=== PATIENT | female | born 1990 | race Caucasian/White ===

== ENCOUNTER 2017-05-20 19:21 | Emergency (ER) | payer BC ==
[2017-05-20 19:54] VITALS: BP 133/88
--- NOTE | 2017-05-20 20:36 | ER Document Report ---
ED Medical Screen (RME) - General TRAVEL OUTSIDE OF THE [place] IN LAST 30 DAYS: No <IVETTE VILLATORO - Last Filed: 05/20/17 20:35> <ELKIN SCHROEDER - Last Filed: 05/20/17 23:37> - General Chief Complaint: Laceration Stated Complaint: FINGER LACERATION Time Seen by Provider: 05/20/17 20:35 Notes: Patient cut her right little finger on a broken glass this evening. She has an L-shaped 2 cm laceration over the proximal lateral aspect of the right fifth finger. It is in the region of the digital nerve on both the top and the bottom laterally. She describes numbness down the entire lateral aspect of the finger. She has flexion and extension at the PIP joint. (IVETTE VILLATORO) - Related Data Allergies/Adverse Reactions: No Known Allergies Allergy (Verified 05/20/17 19:51) Home Medications: Current Home Medications Norethindrone-Ethinyl Estrad [Alyacen 1-35-28 Tablet] 1 tab PO DAILY 05/20/17 [ History] Venlafaxine HCl ER [Effexor Xr 75 mg Cap.sr] 75 mg PO DAILY 05/20/17 [History] Past Medical History - Social History Chew tobacco use (# tins/day): No Frequency of alcohol use: Occasional Drug Abuse: None Renal/ Medical History: Denies: Hx Peritoneal Dialysis GI Medical History: Reports: Hx Gastroesophageal Reflux Disease Psychiatric Medical History: Reports: Hx Depression - anxiety Past Surgical History: Reports: Hx Section, Hx Tonsillectomy - Immunizations Hx Diphtheria, Pertussis, Tetanus Vaccination: Yes History of Influenza Vaccine for 05/2017 - 10/2017 Season: No <IVETTE VILLATORO - Last Filed: 05/20/17 20:35> - Vital signs Vitals: Temp Pulse Resp BP Pulse Ox 98.7 F 80 18 133/88 H 99 05/20/17 19:52 05/20/17 19:52 05/20/17 19:52 05/20/17 19:52 05/20/17 19:52 - Vital Signs Vital signs: Temp Pulse Resp BP Pulse Ox 98.7 F 80 18 133/88 H 99 05/20/17 19:52 05/20/17 19:52 05/20/17 19:52 05/20/17 19:52 05/20/17 19:52 Procedures - Laceration/Wound Repair Right Hand 5th digit Time completed: 23:24 Wound length (cm): 2.5 Wound's Depth, Shape: Superficial, Flap Laceration pre-procedure: Sterile PPE donned, Betadine prep applied, Sterile drapes applied Anesthetic type: 2% Lidocaine Volume Anesthetic (mLs): 1 Wound explored: Clean Irrigated w/ Saline (mLs): 40 Wound Debrided: Minimal Wound Repaired With: Sutures Suture Size/Type: 5:0, Prolene Number of Sutures: 6 Layer Closure?: No Post-procedure wound care: Sterile dressing applied Post-procedure NV exam normal: No - HYPESTHESIA ULNAR SIDE OF DIGIT DISTAL TO INJURY Complications: No Hands front picture: 1 - LACERATION, SUTURED <ELKIN SCHROEDER - Last Filed: 05/20/17 23:37> Doctor's Discharge <IVETTE VILLATORO - Last Filed: 05/20/17 20:35> <ELKIN SCHROEDER - Last Filed: 05/20/17 23:37> - Discharge Clinical Impression: Laceration of finger Qualifiers: Encounter type: initial encounter Finger: little finger Damage to nail status: without damage Foreign body presence: without foreign body Laterality: right Qualified Code(s): S61.216A - Laceration without foreign body of right little finger without damage to nail, initial encounter Condition: Stable Disposition: HOME, SELF-CARE Instructions: Laceration Care ([facility]), Oral Narcotic Medication ([facility]), Soap Cleansing ([facility]), Elevate the Injury ([facility]) Additional Instructions: KEEP HAND ELEVATED MUCH POSSIBLE NEXT 24-48 HOURS. KEEP WOUND CLEAN, KEEP IT DRY FOR NEXT 24 HOURS. YOU MAY TAKE NORCO FOR PAIN IF NEEDED. FOLLOW UP FOR SUTURE REMOVAL IN 10 DAYS, RETURN SOONER IF PROBLEMS.
[2017-05-20] MEDS ORDERED: LIDOCAINE 2% INJ (20 MG/ML) 20 ML MDV INJ ONE (20:43)
[2017-05-20] MEDS ORDERED: HYDROCODONE/ACETAMINOPHEN 5-325 MG 6 TAB/DSPK PO PRN (23:37)
--- NOTE | 2017-05-20 23:47 | ER Document Report ---
ED Wound - General Chief Complaint: Laceration Stated Complaint: FINGER LACERATION Time Seen by Provider: 05/20/17 20:35 Mode of Arrival: Ambulatory Information source: Patient TRAVEL OUTSIDE OF THE [place] IN LAST 30 DAYS: No - HPI Patient complains to provider of: Laceration Occurred: Just prior to arrival Onset/Duration: Sudden Quality of pain: Sharp Severity: Mild Context: Injury - WASHING DISHES, DRINKING GLASS BROKE & CUT FINGER Skin Temperature: Warm Skin Color: Normal Capillary refill: < 3 seconds Sensations intact: No - HYPESTHESIA ULNAR SIDE OF 5th FINGER DISTAL TO WOUND Distal pulses present: Yes Associated Symptoms: None - Related Data Allergies/Adverse Reactions: No Known Allergies Allergy (Verified 05/20/17 19:51) Home Medications: Current Home Medications Norethindrone-Ethinyl Estrad [Alyacen 1-35-28 Tablet] 1 tab PO DAILY 05/20/17 [ History] Venlafaxine HCl ER [Effexor Xr 75 mg Cap.sr] 75 mg PO DAILY 05/20/17 [History] Past Medical History - General Information source: Patient - Social History Smoking Status: Current Every Day Smoker Chew tobacco use (# tins/day): No Frequency of alcohol use: Occasional Drug Abuse: None Family History: Reviewed & Not Pertinent Patient has suicidal ideation: No Patient has homicidal ideation: No - Past Medical History Cardiac Medical History: Reports: None Pulmonary Medical History: Reports: None EENT Medical History: Reports: None Neurological Medical History: Reports: None Endocrine Medical History: Reports: None Renal/ Medical History: Reports: None. Denies: Hx Peritoneal Dialysis Malignancy Medical History: Reports: None GI Medical History: Reports: Hx Gastroesophageal Reflux Disease Musculoskeltal Medical History: Reports None Psychiatric Medical History: Reports: Hx Depression - anxiety Past Surgical History: Reports: Hx Section, Hx Tonsillectomy - Immunizations Hx Diphtheria, Pertussis, Tetanus Vaccination: Yes Review of Systems - Review of Systems Constitutional: No symptoms reported EENT: No symptoms reported Cardiovascular: No symptoms reported Respiratory: No symptoms reported Gastrointestinal: No symptoms reported Genitourinary: No symptoms reported Female Genitourinary: No symptoms reported Musculoskeletal: No symptoms reported Skin: See HPI Neurological/Psychological: See HPI Physical Exam - Vital signs Vitals: Temp Pulse Resp BP Pulse Ox 98.7 F 80 18 133/88 H 99 05/20/17 19:52 05/20/17 19:52 05/20/17 19:52 05/20/17 19:52 05/20/17 19:52 Interpretation: Normal - General General appearance: Appears well, Alert In distress: None - HEENT Head: Normocephalic Eyes: Normal Conjunctiva: Normal Ears: Normal Nasal: Normal Mouth/Lips: Normal Mucous membranes: Normal - Respiratory Respiratory status: No respiratory distress - Cardiovascular Rhythm: Regular - Abdominal Inspection: Normal Distension: No distension - Extremities General upper extremity: Normal inspection General lower extremity: No: Normal inspection - R. HAND (SEE BELOW) Hand: Laceration - 5th DIGIT (SEE GRAPHIC) - Neurological Neuro grossly intact: No - DECREASED SENSATION DISTAL TO LACERATION - Psychological Associated symptoms: Normal affect, Normal mood - Skin Skin Temperature: Warm Skin Moisture: Dry Skin Color: Normal Skin Turgor: Elastic Skin irregularity: Laceration - SEE GRAPHIC Course - Vital Signs Vital signs: Temp Pulse Resp BP Pulse Ox 98.3 F 82 18 133/88 H 99 05/20/17 23:53 05/20/17 23:53 05/20/17 23:53 05/20/17 19:52 05/20/17 23:53 Procedures - Laceration/Wound Repair Right Hand 5th digit Time completed: 23:24 Wound length (cm): 2.5 Wound's Depth, Shape: Superficial, Flap Laceration pre-procedure: Sterile PPE donned, Betadine prep applied, Sterile drapes applied Anesthetic type: 2% Lidocaine Volume Anesthetic (mLs): 1 Wound explored: Clean, No foreign body removed Irrigated w/ Saline (mLs): 40 Wound Debrided: Minimal Wound Repaired With: Sutures Suture Size/Type: 5:0, Prolene Number of Sutures: 6 Layer Closure?: No Post-procedure wound care: Sterile dressing applied Post-procedure NV exam normal: No - HYPESTHESIA ULNAR SIDE OF DIGIT DISTAL TO WOUND Complications: No Discharge - Discharge Clinical Impression: Laceration of finger Qualifiers: Encounter type: initial encounter Finger: little finger Damage to nail status: without damage Foreign body presence: without foreign body Laterality: right Qualified Code(s): S61.216A - Laceration without foreign body of right little finger without damage to nail, initial encounter Condition: Stable Disposition: HOME, SELF-CARE Instructions: Elevate the Injury ([facility]), Laceration Care ([facility]), Oral Narcotic Medication ([facility]), Soap Cleansing ([facility]) Additional Instructions: KEEP HAND ELEVATED MUCH POSSIBLE NEXT 24-48 HOURS. KEEP WOUND CLEAN, KEEP IT DRY FOR NEXT 24 HOURS. YOU MAY TAKE NORCO FOR PAIN IF NEEDED. FOLLOW UP FOR SUTURE REMOVAL IN 10 DAYS, RETURN SOONER IF PROBLEMS.
== END 2017-05-20 23:55 | disposition home or self-care (01) ==
LOC: ER 19:21
PROC: 0HQFXZZ Repair Right Hand Skin, External Approach (ICD-10-PCS; principal; 2017-05-20)
DX: S61.216A Laceration without foreign body of right little finger without damage to nail, initial encounter (principal); W25.XXXA Contact with sharp glass, initial encounter; Y93.G1 Activity, food preparation and clean up; F17.200 Nicotine dependence, unspecified, uncomplicated
CPT/HCPCS: 99283; 12001; J3490

== ENCOUNTER 2019-09-01 20:32 | Emergency (ER) | payer BC, OTHER ==
--- NOTE | 2019-09-01 20:54 | ER Document Report ---
ED Medical Screen (RME) - General Chief Complaint: Foot Pain Stated Complaint: TOE/FOOT PAIN Time Seen by Provider: 09/01/19 20:42 Notes: Patient is a 28-year-old female who presents to the emergency department with left foot pain. Pain started on her big toe about a week ago. Patient was seen by her OB and uric acid level was drawn. It was negative. Patient denies any injury. Patient is . Exam: Warmth and tenderness noted to left great toe. I have greeted and performed a rapid initial assessment of this patient. A comprehensive ED assessment and evaluation of the patient, analysis of test results and completion of medical decision making process will be conducted by an additional ED providers. TRAVEL OUTSIDE OF THE [place] IN LAST 30 DAYS: No - Related Data Allergies/Adverse Reactions: No Known Allergies Allergy (Verified 05/20/17 19:51) Home Medications: Rinidine Past Medical History - Social History Chew tobacco use (# tins/day): No Frequency of alcohol use: None Drug Abuse: None Renal/ Medical History: Denies: Hx Peritoneal Dialysis GI Medical History: Reports: Hx Gastroesophageal Reflux Disease Psychiatric Medical History: Reports: Hx Depression - anxiety Past Surgical History: Reports: Hx Section, Hx Tonsillectomy - Immunizations Hx Diphtheria, Pertussis, Tetanus Vaccination: Yes Physical Exam - Vital signs Vitals: Temp Pulse Resp BP Pulse Ox 98.1 F 88 17 140/66 H 100 09/01/19 20:47 09/01/19 20:47 09/01/19 20:47 09/01/19 20:47 09/01/19 20:47 Course - Vital Signs Vital signs: Temp Pulse Resp BP Pulse Ox 98.1 F 88 17 140/66 H 100 09/01/19 20:47 09/01/19 20:47 09/01/19 20:47 09/01/19 20:47 09/01/19 20:47
--- NOTE | 2019-09-01 21:48 | RADIOLOGY REPORT (SQ) ---
EXAM DESCRIPTION: XR FOOT 3 OR MORE VIEWS COMPLETED DATE/TME: 09/01/2019 20:46 CLINICAL HISTORY: 28 years, Female, pain; no injury COMPARISON: None. NUMBER OF VIEWS: TECHNIQUE: LIMITATIONS: None. FINDINGS: 3 views of the left foot were obtained. There is a possible mild hallux valgus deformity. No fracture or dislocation. No evidence of arthritis. Mineralization of bone appears normal. IMPRESSION: Possible mild hallux valgus deformity. copyright 2010 [employer]- All Rights Reserved
--- NOTE | 2019-09-01 22:08 | RADIOLOGY REPORT (SQ) ---
Ultrasound left lower extremity venous duplex exam on 09/01/2019 at 9:29 PM Clinical indications: Left leg pain COMPARISON: None FINDINGS: Multiple sonographic images are obtained in the right groin and from the left groin to the left calf vessels. Color flow, compression and spectral analysis are all performed. There is complete compressibility of the veins of the lower extremity. Good color flow is identified within the veins of the lower extremity. IMPRESSION: No evidence of deep venous thrombus.
[2019-09-02] MEDS ORDERED: CEFTRIAXONE INJ 1000 MG VIAL IM ONE (00:50)
[2019-09-02] MEDS ORDERED: DEXAMETHASONE SOD PHOSPHATE INJ 4 MG/1 ML VIAL IM ONE (00:50)
[2019-09-02] MEDS ORDERED: LIDOCAINE 1% INJ-PF (10 MG/ML) 30 ML SDV ONE (00:53)
--- NOTE | 2019-09-02 00:56 | ER Document Report ---
ED General - General Chief Complaint: Foot Pain Stated Complaint: TOE/FOOT PAIN Time Seen by Provider: 09/01/19 20:42 TRAVEL OUTSIDE OF THE [place] IN LAST 30 DAYS: No - HPI Onset: This afternoon Onset/Duration: Sudden Quality of pain: Achy Severity: Moderate Pain Level: Denies Context: 28 year old female approximately 30 weeks gestation is here with left great toe pain and redness and some midfoot sts. No injury. Redness has increased over about a day. No fever. Clipped nails maybe a week back. No h/O Abcess or MRSA. Saw PCP who checked a uric acid level and it was normal. Associated symptoms: None Exacerbated by: Denies - Related Data Allergies/Adverse Reactions: No Known Allergies Allergy (Verified 05/20/17 19:51) Home Medications: Rinidine Past Medical History - Social History Smoking Status: Never Smoker Chew tobacco use (# tins/day): No Frequency of alcohol use: None Drug Abuse: None Family History: Reviewed & Not Pertinent Patient has suicidal ideation: No Patient has homicidal ideation: No Renal/ Medical History: Denies: Hx Peritoneal Dialysis GI Medical History: Reports: Hx Gastroesophageal Reflux Disease Psychiatric Medical History: Reports: Hx Depression - anxiety Past Surgical History: Reports: Hx Section, Hx Tonsillectomy - Immunizations Hx Diphtheria, Pertussis, Tetanus Vaccination: Yes Review of Systems - Review of Systems Constitutional: No symptoms reported EENT: No symptoms reported Cardiovascular: No symptoms reported Respiratory: No symptoms reported Gastrointestinal: No symptoms reported Genitourinary: No symptoms reported Female Genitourinary: No symptoms reported Musculoskeletal: See HPI Skin: No symptoms reported Hematologic/Lymphatic: No symptoms reported Neurological/Psychological: No symptoms reported Physical Exam - Vital signs Vitals: Temp Pulse Resp BP Pulse Ox 98.1 F 88 17 140/66 H 100 09/01/19 20:47 09/01/19 20:47 09/01/19 20:47 09/01/19 20:47 09/01/19 20:47 Interpretation: Normal - General General appearance: Appears well, Alert - HEENT Head: Normocephalic, Atraumatic Eyes: Normal Pupils: PERRL - Respiratory Respiratory status: No respiratory distress Chest status: Nontender Breath sounds: Normal Chest palpation: Normal - Cardiovascular Rhythm: Regular Heart sounds: Normal auscultation Murmur: No - Abdominal Inspection: Normal Distension: No distension Bowel sounds: Normal Tenderness: Nontender Organomegaly: No organomegaly - Back Back: Normal, Nontender - Extremities General upper extremity: Normal inspection, Nontender, Normal color, Normal ROM, Normal temperature General lower extremity: Normal inspection, Nontender, Tender, Edema, Normal temperature, Normal weight bearing, Other - Left MTP jt with some redness that extends into midfoot. Mild midfoot sts and erythema. No subq emphysema.. No: Normal color, Normal ROM, Sergio's sign - Neurological Neuro grossly intact: Yes Cognition: Normal Orientation: AAOx4 [place] Coma Scale Eye Opening: Spontaneous [place] Coma Scale Verbal: Oriented [place] Coma Scale Motor: Obeys Commands [place] Coma Scale Total: 15 Speech: Normal Motor strength normal: LUE, RUE, LLE, RLE Sensory: Normal - Psychological Associated symptoms: Normal affect, Normal mood - Skin Skin Temperature: Warm Skin Moisture: Dry Skin Color: Normal Course - Re-evaluation Re-evalutation: 09/02/19 00:55 MDM 28 year old with sts and redness left foot. Consistent with cellulitis in my opinion. No abcess. Healthy female but about 30 weeks gestation with next f/u with PCP on Friday this week. - Vital Signs Vital signs: Temp Pulse Resp BP Pulse Ox 98.1 F 88 17 140/66 H 100 09/01/19 20:47 09/01/19 20:47 09/01/19 20:47 09/01/19 20:47 09/01/19 20:47 Discharge - Discharge Clinical Impression: Cellulitis Qualifiers: Site of cellulitis: extremity Site of cellulitis of extremity: lower extremity Laterality: left Qualified Code(s): L03.116 - Cellulitis of left lower limb Condition: Good Disposition: HOME, SELF-CARE Instructions: Cellulitis ([facility]) Additional Instructions: See your doctor in follow up as scheduled Friday. Rest. Take your medicines as directed. Please return here for any problems or any concerns. Take norco if the tylenol does not control the pain. Forms: Return to Work
[2019-09-02] MEDS ORDERED: HYDROCODONE/ACETAMINOPHEN 5-325 MG (6 TAB/ER DISP) PO PRN (01:04)
[2019-09-02 01:26] VITALS: BP 122/68
== END 2019-09-02 01:28 | disposition home or self-care (01) ==
LOC: ER 20:32
DX: O26.93 Pregnancy related conditions, unspecified, third trimester (principal); L03.116 Cellulitis of left lower limb; M79.675 Pain in left toe(s); Z3A.30 30 weeks gestation of pregnancy
CPT/HCPCS: 99284; 96372; 93971; 73630; J1100; J3490; J0696

== ENCOUNTER 2019-11-01 05:53 | Inpatient (IN) | payer OTHER ==
[2019-10-27 10:46] LABS: APPEARANCE,URINE SLIGHTLY-CLOUDY; BILIRUBIN,URINE NEGATIVE (NEGATIVE); COLOR,URINE YELLOW; GLUCOSE, URINE NEGATIVE (NEGATIVE); KETONES,URINE NEGATIVE (NEGATIVE); LEUKOCYTE ESTERASE,URINE LARGE (NEGATIVE); NITRITE,URINE NEGATIVE (NEGATIVE); PROTEIN,URINE NEGATIVE (NEGATIVE); URINE SPECIFIC GRAVITY 1.012; UROBILINOGEN,URINE NEGATIVE mg/dL (<2.0)
[2019-10-27 10:54] LABS: ADD MANUAL MICROSCOPIC YES
[2019-10-27 10:57] LABS: BACTERIA,URINE 1+ /HPF; RBC,URINE RARE /HPF
[2019-10-27 11:09] LABS: ABSOLUTE EOSINOPHILS # (AUTO) 0.1 10^3/uL (0.0-0.6); ABSOLUTE LYMPHOCYTES (AUTO) 1.4 10^3/uL (0.5-4.7); ABSOLUTE MONOCYTES (AUTO) 0.4 10^3/uL (0.1-1.4); ABSOLUTE NEUT (AUTO) 6.7 10^3/uL (1.7-8.2); BASOPHILS % (AUTO) 0.3 % (0-2); EOSINOPHILS % (AUTO) 0.7 % (0-6); HEMATOCRIT 29.3 % (36.0-47.0); HEMOGLOBIN 10.2 g/dL (12.0-15.5); LYMPHOCYTES % (AUTO) 16.1 % (13-45); MEAN CORPUSCULAR HGB CONC 34.6 g/dL (32.0-36.0); MEAN CORPUSCULAR VOLUME 78 fl (80-97); MONOCYTES % (AUTO) 4.6 % (3-13); PLATELET COUNT 183 10^3/uL (150-450); RED BLOOD COUNT 3.76 10^6/uL (3.72-5.28); RED CELL DISTRIBUTION WIDTH 15.7 % (11.5-14.0); SEGMENTED NEUTROPHILS % (AUTO) 78.3 % (42-78); TOTAL CELLS COUNTED % (AUTO) 100 %; WHITE BLOOD COUNT 8.6 10^3/uL (4.0-10.5)
[2019-10-27 11:20] LABS: URINE AMPHETAMINES SCREEN NEGATIVE; URINE BARBITURATES SCREEN NEGATIVE; URINE BENZODIAZEPINES SCREEN NEGATIVE; URINE MARIJUANA (THC) SCREEN NEGATIVE; URINE PHENCYCLIDINE SCREEN NEGATIVE
[2019-10-27 11:36] LABS: URINE COCAINE SCREEN NEGATIVE; URINE METHADONE SCREEN NEGATIVE
[~2019-11-01 05:53] MED LIST: CEFAZOLIN SODIUM 2 GM in DEXTROSE 5%-WATER 100 ML IV PRN; LACTATED RINGERS 1000 ML IV PRN
[2019-11-01 07:43] LABS: ABSOLUTE EOSINOPHILS # (AUTO) 0.1 10^3/uL (0.0-0.6); ABSOLUTE LYMPHOCYTES (AUTO) 1.5 10^3/uL (0.5-4.7); ABSOLUTE MONOCYTES (AUTO) 0.5 10^3/uL (0.1-1.4); ABSOLUTE NEUT (AUTO) 4.6 10^3/uL (1.7-8.2); BASOPHILS % (AUTO) 0.6 % (0-2); EOSINOPHILS % (AUTO) 1.2 % (0-6); HEMOGLOBIN 9.3 g/dL (12.0-15.5); LYMPHOCYTES % (AUTO) 22.1 % (13-45); MEAN CORPUSCULAR HEMOGLOBIN 26.1 pg (27.0-33.4); MEAN CORPUSCULAR HGB CONC 33.1 g/dL (32.0-36.0); MEAN CORPUSCULAR VOLUME 79 fl (80-97); MONOCYTES % (AUTO) 7.8 % (3-13); PLATELET COUNT 222 10^3/uL (150-450); RED BLOOD COUNT 3.56 10^6/uL (3.72-5.28); RED CELL DISTRIBUTION WIDTH 16.1 % (11.5-14.0); SEGMENTED NEUTROPHILS % (AUTO) 68.3 % (42-78); TOTAL CELLS COUNTED % (AUTO) 100 %; WHITE BLOOD COUNT 6.7 10^3/uL (4.0-10.5)
[2019-11-01] MEDS ORDERED: ACETAMINOPHEN 1,000 MG/100 ML RTUPB IV ONE (09:12)
[2019-11-01] MEDS ORDERED: OXYTOCIN/NORMAL SALINE 20 UNIT/1,000 ML RTUINJ ONE (09:12)
[2019-11-01] MEDS ORDERED: FENTANYL CITRATE INJ/PF 100 MCG/2 ML AMPUL ONE (09:12)
[2019-11-01] MEDS ORDERED: PROPOFOL INJ 200 MG/20 ML VIAL IV ONE (09:12)
[2019-11-01] MEDS ORDERED: OXYTOCIN 10 UNIT/ML VIAL ONE (09:12)
[2019-11-01] MEDS ORDERED: PROMETHAZINE HCL INJ 25 MG/1 ML VIAL IV PRN ×3 (10:18→10:37)
[2019-11-01] MEDS ORDERED: FENTANYL CITRATE INJ/PF 100 MCG/2 ML AMPUL IV PRN ×3 (10:18)
[2019-11-01] MEDS ORDERED: MORPHINE SULFATE 10 MG/ML INJ IV PRN ×2 (10:18→10:37)
[2019-11-01] MEDS ORDERED: MEPERIDINE HCL/PF INJ 25 MG/1 ML DISP.SYRIN IV PRN (10:18)
[2019-11-01] MEDS ORDERED: DIPHENHYDRAMINE HCL 50 MG/ML VIAL IV PRN (10:18)
[2019-11-01] MEDS ORDERED: OXYTOCIN/NORMAL SALINE 20 UNIT/1,000 ML RTUINJ IV PRN (10:37)
[2019-11-01] MEDS ORDERED: OXYCODONE-ACETAMINOPHEN 5-325 MG TABLET PO PRN (10:37)
[2019-11-01] MEDS ORDERED: MEASLES,MUMPS&RUBELLA VACC/PF 0.5 ML VIAL SUBCUT PRN (10:37)
[2019-11-01] MEDS ORDERED: DIPH/PERTUSS(ACELL)/TETANUS VAC/PF 0.5 ML SYR (>=10YO) IM PRN (10:37)
[2019-11-01] MEDS ORDERED: ACETAMINOPHEN 325 MG TABLET PO PRN (10:37)
[2019-11-01] MEDS ORDERED: RINGERS SOLUTION,LACTATED 1,000 ML IV PRN (10:37)
[2019-11-01] MEDS ORDERED: ACETAMINOPHEN 1,000 MG/100 ML RTUPB IV PRN (10:37)
[2019-11-01] MEDS ORDERED: SIMETHICONE 80 MG TAB.CHEW PO PRN (10:37)
--- NOTE | 2019-11-01 10:41 | Operative Report ---
Operative Report DATE OF SURGERY: 11/01/19 PREOPERATIVE DIAGNOSIS: IUP @ 39+, previous c/section POSTOPERATIVE DIAGNOSIS: same OPERATION: Repeat low transverse hysterotomy section SURGEON: KIESHA OWENS 1ST [employer] LABORATORY ASSISTANT: DAWSON VIRAMONTES ANESTHESIA: Spinal COMPLICATIONS: None ESTIMATED BLOOD LOSS: 650 cc INTRAOPERATIVE FINDINGS: Male infant cephalic presentation Apgars of 8 and 9 weight 9 pounds 5 ounces PROCEDURE: PROCEDURE IN DETAIL: The patient was taken to the operating room, prepared and draped in a normal sterile fashion in a supine position with a leftward tilt. A transverse skin incision was made with a scalpel and carried through to the underlying layer of fascia with the same scalpel. The fascia was excised in the midline and extended laterally with Jason. The fascia was then dissected from the rectus muscle sharply with Jason and the rectus muscle was divided and the peritoneal cavity was entered sharply with the same Metzenbaum. With good visualization of the bladder and the uterus the bladder blade was inserted. The hysterotomy was nicked with a scalpel and extended laterally with surgeon finger fraction. The was then delivered atraumatically. The nose and mouth were suctioned with a suction bulb, the cord was clamped and cut and handed off to awaiting pediatricians. Cord blood was collected. The placenta was removed manually. The uterus was exteriorized and cleared of clots and debris. The hysterotomy was closed with 0 Monocryl in a running, locked fashion. A second layer of the same suture was used to imbricate to ensure hemostasis. The uterus was returned to the abdomen and peritoneal cavity was cleared of clots and debris. The rectus muscle and peritoneum were repaired with mattress stitch of 2-0 Chromic. The fascia was closed with 0-Vicryl. The subcutaneous layer was closed with plain catgut and the skin was closed with 4-0 Vicryl. The patient tolerated the procedure well. Sponge, lap, and needle counts correct x2 and the patient was taken to recovery in stable condition.
[2019-11-01] MEDS: FENTANYL CITRATE INJ/PF 100 MCG/2 ML AMPUL ONE ×3 (11:46→12:07)
[2019-11-01] MEDS: KETOROLAC TROMETHAMINE INJ/PF 30 MG/1 ML SDV IV SCH ×2 (14:15→22:56)
[2019-11-01] MEDS: OXYCODONE-ACETAMINOPHEN 5-325 MG TABLET PO PRN ×2 (16:14→21:54)
[2019-11-01] MEDS: DOCUSATE SODIUM 100 MG CAPSULE PO SCH (17:40)
[2019-11-02] MEDS ORDERED: FAMOTIDINE INJ/PF 20 MG/2 ML SDV IV ONE (03:45)
[2019-11-02] MEDS ORDERED: PANTOPRAZOLE SODIUM 40 MG VIAL IV ONE (03:45)
[2019-11-02] MEDS: KETOROLAC TROMETHAMINE INJ/PF 30 MG/1 ML SDV IV SCH (05:52)
[2019-11-02 07:00] LABS: HEMATOCRIT 29.4 % (36.0-47.0); HEMOGLOBIN 9.9 g/dL (12.0-15.5); MEAN CORPUSCULAR HEMOGLOBIN 26.2 pg (27.0-33.4); MEAN CORPUSCULAR HGB CONC 33.6 g/dL (32.0-36.0); MEAN CORPUSCULAR VOLUME 78 fl (80-97); PLATELET COUNT 226 10^3/uL (150-450); RED BLOOD COUNT 3.76 10^6/uL (3.72-5.28); RED CELL DISTRIBUTION WIDTH 16.4 % (11.5-14.0); WHITE BLOOD COUNT 10.2 10^3/uL (4.0-10.5)
--- NOTE | 2019-11-02 09:40 | PDOC PROGRESS REPORT ---
Subjective-OB Progress Note for:: 11/02/19 Subjective: Pt doing well, no concerns. She reports light bleeding, reg diet, +flatus and voiding without difficulty. Pain is contolled. Physical Exam (OB) Vital Signs: Temp Pulse Resp BP Pulse Ox 98.3 F 66 16 119/64 96 11/02/19 07:28 11/02/19 07:28 11/02/19 07:28 11/02/19 07:28 11/02/19 07:28 Intake & Output 11/01/19 11/02/19 11/03/19 06:59 06:59 06:59 Intake Total 33694 Output Total 3588 Balance 8177 Weight 106.59 kg - PIH/Pre-Eclampsia DTR's: 1 + Clonus: Negative Headache: Absent Epigastric Pain: No Visual Changes: No - Dressing Removed: No Incision: Dressing Closure Type: op site - Lochia Lochia Amount: Scant < 10 ml Lochia Color: Rubra/Red - Abdomen Description: Soft Hernia Present: No Fundal Description: Firm, Midline Fundal Height: u/u - u/2 Objective-Diagnostic Laboratory: 11/02/19 06:50 11/02/19 06:50 WBC 10.2 RBC 3.76 Hgb 9.9 L Hct 29.4 L MCV 78 L MCH 26.2 L MCHC 33.6 RDW 16.4 H Plt Count 226 Assessment and Plan(PN) - Assessment and Plan (1) S/P repeat low transverse Is this a current diagnosis for this admission?: Yes - Time Spent with Patient Time with patient: Less than 15 minutes Medications reviewed and adjusted accordingly: Yes - Disposition Anticipated Discharge: Home Within: within 24 hours
[2019-11-02] MEDS: PRENATAL VITAMIN W DHA CAPSULE PO SCH (09:43)
[2019-11-02] MEDS: DOCUSATE SODIUM 100 MG CAPSULE PO SCH ×2 (09:43→17:46)
[2019-11-02] MEDS: IBUPROFEN 800 MG TABLET PO SCH ×3 (12:13→23:27)
[2019-11-02] MEDS: OXYCODONE-ACETAMINOPHEN 5-325 MG TABLET PO PRN (15:55)
[2019-11-03] MEDS: IBUPROFEN 800 MG TABLET PO SCH ×2 (05:52→11:51)
[2019-11-03] MEDS: DOCUSATE SODIUM 100 MG CAPSULE PO SCH (09:32)
[2019-11-03] MEDS: PRENATAL VITAMIN W DHA CAPSULE PO SCH (09:35)
[2019-11-03] MEDS ORDERED: PANTOPRAZOLE SODIUM 40 MG VIAL IV SCH (10:00)
[2019-11-03] MEDS ORDERED: FAMOTIDINE INJ/PF 20 MG/2 ML SDV IV SCH (10:00)
[2019-11-03 11:32] VITALS: BP 117/66
--- NOTE | 2019-11-03 12:45 | PDOC DISCHARGE SUMMARY ---
Impression - Admit/DC Date/PCP Admission Date/Primary Care Provider: 11/01/19 05:53 KIESHA OWENS MD Discharge Date: 11/03/19 - Discharge Diagnosis (1) Anemia complicating , third trimester Is this a current diagnosis for this admission?: Yes (2) S/P repeat low transverse Is this a current diagnosis for this admission?: Yes - Assessment Summary: s/p repeat ppd2, stable and ready for discharge - Additional Information Resuscitation Status: Full Code Discharge Diet: As Tolerated, Regular Discharge Activity: Activity As Tolerated, Balance Activity w/Rest, No Lifting Over 10 Pounds, Pelvic Rest, No tub bath, Walk Frequently Referrals: KIESHA OWENS MD [Primary Care Provider] - Prescriptions: Oxycodone HCl/Acetaminophen [Percocet 5-325 mg Tablet] 1 tab PO Q4HP PRN #20 tablet PRN Reason: For Pain Scale 3-5 Ibuprofen [Motrin 800 mg Tablet] 800 mg PO Q6HP PRN #20 tablet PRN Reason: For Pain Scale 1-3 Docusate Sodium [Colace 100 mg Capsule] 100 mg PO BID #60 capsule Home Medications: Iron 18 mg PO ASDIR PRN 10/26/19 Multivitamin [Multivitamins] 1 each PO ASDIR PRN 10/26/19 Ranitidine HCl 150 mg PO ASDIR PRN 10/26/19 Docusate Sodium [Colace 100 mg Capsule] 100 mg PO BID #60 capsule 11/03/19 Ibuprofen [Motrin 800 mg Tablet] 800 mg PO Q6HP PRN #20 tablet 11/03/19 Oxycodone HCl/Acetaminophen [Percocet 5-325 mg Tablet] 1 tab PO Q4HP PRN #20 tablet 11/03/19 Results Laboratory Results: WBC 10.2 10^3/uL (4.0-10.5) 11/02/19 06:50 RBC 3.76 10^6/uL (3.72-5.28) 11/02/19 06:50 Hgb 9.9 g/dL (12.0-15.5) L 11/02/19 06:50 Hct 29.4 % (36.0-47.0) L 11/02/19 06:50 MCV 78 fl (80-97) L 11/02/19 06:50 MCH 26.2 pg (27.0-33.4) L 11/02/19 06:50 MCHC 33.6 g/dL (32.0-36.0) 11/02/19 06:50 RDW 16.4 % (11.5-14.0) H 11/02/19 06:50 Plt Count 226 10^3/uL (150-450) 11/02/19 06:50 Lymph % (Auto) 22.1 % (13-45) 11/01/19 07:02 [place] % (Auto) 7.8 % (3-13) 11/01/19 07:02 Eos % (Auto) 1.2 % (0-6) 11/01/19 07:02 Baso % (Auto) 0.6 % (0-2) 11/01/19 07:02 Absolute Neuts (auto) 4.6 10^3/uL (1.7-8.2) 11/01/19 07:02 Absolute Lymphs (auto) 1.5 10^3/uL (0.5-4.7) 11/01/19 07:02 Absolute Monos (auto) 0.5 10^3/uL (0.1-1.4) 11/01/19 07:02 Absolute Eos (auto) 0.1 10^3/uL (0.0-0.6) 11/01/19 07:02 Absolute Basos (auto) 0.0 10^3/uL (0.0-0.2) 11/01/19 07:02 Seg Neutrophils % 68.3 % (42-78) 11/01/19 07:02 Urine Color YELLOW 10/27/19 09:29 Urine Appearance SLIGHTLY-CLOUDY 10/27/19 09:29 Urine pH 7.0 (5.0-9.0) 10/27/19 09:29 Ur Specific [place] 1.012 10/27/19 09:29 Urine Protein NEGATIVE mg/dL (NEGATIVE) 10/27/19 09: Urine Glucose (UA) NEGATIVE mg/dL (NEGATIVE) 10/27/19 09:29 Urine Ketones NEGATIVE mg/dL (NEGATIVE) 10/27/19 09: Urine Blood NEGATIVE (NEGATIVE) 10/27/19 09: Urine Nitrite NEGATIVE (NEGATIVE) 10/27/19 09:29 Urine Bilirubin NEGATIVE (NEGATIVE) 10/27/19 09:29 Urine Urobilinogen NEGATIVE mg/dL (<2.0) 10/27/19 09:29 Ur Leukocyte Esterase LARGE (NEGATIVE) H 10/27/19 09:29 Urine RBC RARE /HPF 10/27/19 09:29 Urine WBC 5-10 /HPF 10/27/19 09:29 Ur Squamous Epith Cells TOO MANY TO COUNT /HPF 10/27/19 09:29 Urine Bacteria 1+ /HPF 10/27/19 09:29 Urine Mucus 1+ 10/27/19 09:29 Urine Ascorbic Acid NEGATIVE (NEGATIVE) 10/27/19 09:29 Urine Opiates Screen NEGATIVE 10/27/19 09:29 Urine Methadone Screen NEGATIVE 10/27/19 09:29 Ur Barbiturates Screen NEGATIVE 10/27/19 09:29 Ur Phencyclidine Scrn NEGATIVE 10/27/19 09:29 Ur Amphetamines Screen NEGATIVE 10/27/19 09:29 U Benzodiazepines Scrn NEGATIVE 10/27/19 09:29 Urine Cocaine Screen NEGATIVE 10/27/19 09:29 U Marijuana (THC) Screen NEGATIVE 10/27/19 09:29 Blood Type O POSITIVE 10/30/19 08:45 Antibody Screen NEGATIVE 10/30/19 08:45
[2019-11-03] MEDS: OXYCODONE-ACETAMINOPHEN 5-325 MG TABLET PO PRN (14:11)
--- NOTE | 2019-11-05 13:40 | Delivery Summary ---
Del Sum A-C Datetime Report Generated by CPN: 11/05/2019 13:40 Infant Delivery Date/Time: 11/01/2019 10:04 Method of Delivery: Born in Route : No Heart Rate 1 min: >100 bpm Resp Effort 1 min: Good Cry Reflex Irritability 1 min: Cough or Sneeze or Pulls Away Muscle Tone 1 min: Active Motion Color 1 min: Body [place], Extremities Blue Heart Rate 5 min: >100 bpm Resp Effort 5 min: Good Cry Reflex Irritability 5 min: Cough or Sneeze or Pulls Away Muscle Tone 5 min: Active Motion Color 5 min: Body [place], Extremities Blue Gestational Age at Delivery: 39.1 Infant Outcome : Liveborn Condition : Stable Infant Sex: Male Birthweight (gm): 4235 Length (in): 19.50 Skin to Skin: Yes
== END 2019-11-03 14:42 | disposition home or self-care (01) | DRG 788 ==
LOC: 2S 05:53
PROVIDERS: ADMIT Obstetrics & Gynecology; ATTEND Obstetrics & Gynecology
PROC: 10D00Z1 Extraction of Products of Conception, Low, Open Approach (ICD-10-PCS; principal; 2019-11-01 09:00)
DX: O34.211 Maternal care for low transverse scar from previous cesarean delivery (principal); O99.02 Anemia complicating childbirth; D64.9 Anemia, unspecified; Z3A.39 39 weeks gestation of pregnancy; Z37.0 Single live birth
CPT/HCPCS: 1961; 36415; 80307; 81001; 85025; 85027; 86850; 86900; 86901; 94799; C9113; J0131; J0690; J1885; J2270; J2590; J2704; J3010; J7060; J7120; S0028